=== PATIENT | female | born 1965 | race Caucasian/White ===

== ENCOUNTER 2017-09-27 18:14 | Emergency (ER) | payer SELFPAY ==
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
[2017-09-27 19:42] VITALS: BP 118/60
== END 2017-09-27 19:40 | disposition home or self-care (01) ==
LOC: ER 18:14
DX: M79.604 Pain in right leg (principal); F17.200 Nicotine dependence, unspecified, uncomplicated